=== PATIENT | male | born 1945 | race Caucasian/White ===

== ENCOUNTER 2019-05-09 22:45 | Emergency (ER) | payer BC ==
[~2019-05-09] VITALS: Ht 182.9 cm; Wt 113.4 kg
[2019-05-09 22:55] VITALS: BP 167/93
--- NOTE | 2019-05-09 23:00 | NUR ---
PT BIBWIFE. R KNEE AND CALF PAIN X 2-3 WEEKS. NO TRAUMA. SWOLLEN THAT L CALF PAIN 5/10 PS. PT AAOX4, RR EVEN AND UNLABORED ON RA W AND NOTED. PT CONNECTED TO THE MASTIC FLOOR LAYER AND POX
--- NOTE | 2019-05-09 23:48 | NUR ---
ULTRASOUND IN PROGRESS AT BEDSIDE
--- NOTE | 2019-05-10 00:15 | NUR ---
Patient discharged to home in stable condition. Written and verbal after care instructions given. Patient verbalizes understanding of instruction.
== END 2019-05-10 00:15 | disposition home or self-care (01) ==
LOC: ER 22:58
DX: R60.0 Localized edema (principal); I25.2 Old myocardial infarction; Z95.818 Presence of other cardiac implants and grafts
CPT/HCPCS: 93971-TC

== ENCOUNTER 2025-01-16 20:50 | Emergency (ER) | payer BC | END 2025-01-16 23:44 | disposition left against medical advice (07) | LOC: ER 20:56 | DX: M79.606 Pain in leg, unspecified (principal); Z53.21 Procedure and treatment not carried out due to patient leaving prior to being seen by health care provider ==